=== PATIENT | male | born 1965 | race Caucasian/White ===

== ENCOUNTER 2023-08-27 09:13 | Emergency (ER) | payer BC ==
[~2023-08-27] VITALS: Ht 175.3 cm; Wt 111.0 kg
[2023-08-27] MEDS ORDERED: OMEPRAZOLE DR40 MG PO (09:34)
[2023-08-27] MEDS ORDERED: ATORVASTATIN CA40 MG PO (09:35)
[2023-08-27 11:14] VITALS: BP 107/77
[2023-08-27 11:21] VITALS: BP 107/77
== END 2023-08-27 11:26 | disposition home or self-care (01) | DRG 103 ==
LOC: ED 09:13
DX: R51.9 Headache, unspecified (principal); Z20.822 Contact with and (suspected) exposure to COVID-19